=== PATIENT | male | born 1960 | race Caucasian/White ===

== ENCOUNTER 2021-03-25 20:51 | Inpatient (IN) | payer MEDICARE, OTHER ==
[~2021-03-25] VITALS: Ht 167.6 cm; Wt 108.2 kg
[2021-03-25 22:14] LABS: BASOPHIL 0.4 % (0-2); EOSINOPHIL 0 % (0-5); HCT 38.9 % (42.0-52.0); HGB 13.4 g/dl (13.2-18.0); LYMPHOCYTE 8.1 % (15-48); MCH 31.2 pg (25.0-31.0); MCHC 34.4 g/dL (32.0-36.0); MCV 90.5 fL (78.0-100.0); MONOCYTE 6.5 % (0-12); MPV 9.1 fL (6.0-9.5); NEUTROPHIL 84.7 % (41-80); NRBC 0; PLT 196 K/uL (150-400); RDW 13.1 % (11.5-14.0); WBC 13.8 K/uL (4.0-10.5)
[2021-03-25 22:31] LABS: ALBUMIN 3.4 g/dL (3.4-5.0); BUN/CREAT RATIO (CALC) 11.2 RATIO; CREATININE 1.25 mg/dL (0.67-1.17); GLOBULIN (CALCULATION) 3.8 g/dL; POTASSIUM 3.6 mmol/L (3.5-5.1); TOTAL PROTEIN 7.2 g/dL (6.4-8.2)
[2021-03-25 23:49] LABS: LACTIC ACID 1.6 mmol/L (0.4-1.9)
[2021-03-26] MEDS ORDERED: PROTONIX 40MG T40 MG PO (08:44)
[2021-03-26] MEDS ORDERED: RAMIPRIL1.25 MG PO (08:45)
[2021-03-26] MEDS ORDERED: LIPITOR40 MG PO (08:45)
[2021-03-26] MEDS ORDERED: ANTIVERT25 MG PO (08:46)
[2021-03-26] MEDS ORDERED: PLAVIX75 MG PO (08:46)
[2021-03-26] MEDS ORDERED: TOPROL XL 50 MG50 MG PO (08:46)
[2021-03-26] MEDS ORDERED: NITROQUIK SL0.4 MG SL (08:48)
[2021-03-26] MEDS ORDERED: ASPIRIN81 MG PO (08:48)
[2021-03-26] MEDS ORDERED: NEURONTIN300 MG PO (08:49)
[2021-03-26] MEDS ORDERED: MULTIVITAMINS1 EAC2 PO (08:51)
[2021-03-26] MEDS ORDERED: DAILY FIBER0.52 GM PO (08:52)
[2021-03-26] MEDS ORDERED: NASAL DECONGEST30 M3 (08:53)
--- NOTE | 2021-03-26 13:25 | NUR ---
PT. IS HERE FROM [place] [facility]. HE AND HIS TRAVELLED HER FOR A WEDDING. HE IS INDEPENDENT AND DOES NOT USE ANY DME. SPOKE WITH YAMILETH KENNEY, HE IS NOT ANTICIPATING IN NEEDS FOR PT. AND FEELS HE WILL GO HOME ON ORAL ABX.
[2021-03-26 19:21] LABS: BILIRUBIN NEGATIVE (NEGATIVE); BLOOD NEGATIVE Ery/uL (NEGATIVE); CLARITY CLEAR (CLEAR); COLOR YELLOW (YELLOW); GLUCOSE (U) NORMAL (NORMAL); LEUKOCYTES NEGATIVE Leu/uL (NEGATIVE); NITRITE NEGATIVE (NEGATIVE); PROTEIN NEGATIVE (NEGATIVE); UROBILINOGEN 0.2 mg/dL (0.2-1.0)
[2021-03-27 04:13] LABS: BASOPHIL 0.7 % (0-2); EOSINOPHIL 3.4 % (0-5); HCT 36.4 % (42.0-52.0); MCH 30.5 pg (25.0-31.0); MCV 92.4 fL (78.0-100.0); MONOCYTE 11.6 % (0-12); MPV 9.2 fL (6.0-9.5); NEUTROPHIL 57.9 % (41-80); NRBC 0; PLT 157 K/uL (150-400); RBC 3.94 M/uL (4.70-6.00); RDW 13.1 % (11.5-14.0); WBC 5.5 K/uL (4.0-10.5)
[2021-03-27 04:45] LABS: BUN/CREAT RATIO (CALC) 14.4 RATIO; CREATININE 1.04 mg/dL (0.67-1.17); MAGNESIUM 1.6 mg/dL (1.8-2.4); POTASSIUM 3.9 mmol/L (3.5-5.1)
[2021-03-27] MEDS ORDERED: CLEOCIN300 MG PO ×2 (10:28→10:33)
[2021-03-27] MEDS ORDERED: VIBRAMYCIN100 MG PO ×2 (10:29→10:33)
== END 2021-03-27 12:20 | disposition home or self-care (01) | DRG 872 ==
LOC: FER 20:51 → FMS 03-26 06:15
PROVIDERS: Emergency Medicine; Hospitalist; ADMIT Internal Medicine
DX: A41.9 Sepsis, unspecified organism (principal); L03.115 Cellulitis of right lower limb; N17.9 Acute kidney failure, unspecified; I25.10 Atherosclerotic heart disease of native coronary artery without angina pectoris; E83.42 Hypomagnesemia; Z20.822 Contact with and (suspected) exposure to COVID-19; E86.9 Volume depletion, unspecified; E66.9 Obesity, unspecified; Z95.5 Presence of coronary angioplasty implant and graft; Z68.38 Body mass index [BMI] 38.0-38.9, adult; Z88.0 Allergy status to penicillin; Z85.828 Personal history of other malignant neoplasm of skin; Z79.82 Long term (current) use of aspirin; Z79.02 Long term (current) use of antithrombotics/antiplatelets; Z79.899 Other long term (current) drug therapy; Z98.890 Other specified postprocedural states
CPT/HCPCS: 36415; 71045; 72193; 80048; 80053; 81003; 83605; 83735; 85025; 87040; 93971; J1650; J3370; J7030; J7050; Q9967; U0002